=== PATIENT | female | born 2000 | race Caucasian/White ===

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

== ENCOUNTER 2021-02-22 22:45 | Emergency (ER) | payer MEDICAID ==
[~2021-02-22] VITALS: Ht 165.1 cm; Wt 84.8 kg
[2021-02-22] MEDS ORDERED: ketorolac tromethamine 15mg/ml inj. IM ONE (23:55)
[2021-02-22] MEDS ORDERED: oxyCODONE/APAP 5-325mg tablet PO ONE (23:55)
[2021-02-23 00:41] VITALS: BP 131/80
== END 2021-02-23 00:43 | disposition home or self-care (01) ==
LOC: ER 22:46
DX: G89.29 Other chronic pain (principal); M25.551 Pain in right hip; M25.552 Pain in left hip; R45.851 Suicidal ideations; Z88.1 Allergy status to other antibiotic agents; Z79.899 Other long term (current) drug therapy
CPT/HCPCS: 96372; 99283; J1885

== ENCOUNTER 2022-02-24 20:15 | Emergency (ER) | payer MEDICAID ==
[~2022-02-24] VITALS: Ht 165.1 cm; Wt 92.3 kg
[2022-02-24] MEDS ORDERED: oxyCODONE/APAP 10/325mg tablet PO ONE (23:35)
[2022-02-24 23:53] VITALS: BP 125/88
== END 2022-02-24 23:55 | disposition home or self-care (01) ==
LOC: ER 20:16
DX: G89.29 Other chronic pain (principal); M25.551 Pain in right hip; M25.552 Pain in left hip; Z88.1 Allergy status to other antibiotic agents; Z88.5 Allergy status to narcotic agent; Z88.8 Allergy status to other drugs, medicaments and biological substances
CPT/HCPCS: 99283

== ENCOUNTER 2023-01-01 23:19 | Emergency (ER) | payer MEDICAID ==
[~2023-01-01] VITALS: Ht 165.1 cm; Wt 96.8 kg
[~2023-01-01 23:19] MED LIST: ONDA4TAB12 PO
[2023-01-01 23:31] VITALS: BP 104/66
[2023-01-01] MEDS ORDERED: morphine 4 MG/ML inj SYRINge IM ONE (23:45)
[2023-01-01] MEDS ORDERED: OXYC-149 PO (23:45)
[2023-01-01] MEDS ORDERED: ondansetron 4mg rapidly disintigrating tab PO ONE (23:45)
== END 2023-01-02 00:03 | disposition home or self-care (01) ==
LOC: ER 23:20
DX: G89.29 Other chronic pain (principal); M25.551 Pain in right hip; M25.552 Pain in left hip; Z88.1 Allergy status to other antibiotic agents; Z88.6 Allergy status to analgesic agent; Z79.899 Other long term (current) drug therapy
CPT/HCPCS: 96372; 99283; J2270

== ENCOUNTER 2023-02-11 21:42 | Emergency (ER) | payer MEDICAID ==
[~2023-02-11] VITALS: Ht 165.1 cm; Wt 95.5 kg
[~2023-02-11 21:42] MED LIST changes: +OXYC-149 PO
[2023-02-11 22:05] VITALS: BP 106/61
[2023-02-11] MEDS ORDERED: OXYC-150 PO (23:39)
[2023-02-11] MEDS ORDERED: oxyCODONE/APAP 10/325mg tablet PO ONE (23:40)
== END 2023-02-11 23:52 | disposition home or self-care (01) ==
LOC: ER 21:42
DX: M25.552 Pain in left hip (principal); M25.551 Pain in right hip; G89.29 Other chronic pain; Z88.1 Allergy status to other antibiotic agents; F12.10 Cannabis abuse, uncomplicated; Z79.899 Other long term (current) drug therapy; Z79.1 Long term (current) use of non-steroidal anti-inflammatories (NSAID); Z79.2 Long term (current) use of antibiotics
CPT/HCPCS: 99283

== ENCOUNTER 2023-02-15 21:19 | Emergency (ER) | payer MEDICAID ==
[~2023-02-15] VITALS: Ht 165.1 cm; Wt 95.5 kg
[~2023-02-15 21:19] MED LIST changes: +OXYC-150 PO
[2023-02-15] MEDS ORDERED: LORazepam 1 MG tablet PO ONE (23:15)
[2023-02-15] MEDS ORDERED: oxyCODONE/APAP 5-325mg tablet PO ONE (23:15)
[2023-02-15] MEDS ORDERED: OXYC-145 PO (23:18)
[2023-02-15 23:27] VITALS: BP 98/56
== END 2023-02-15 23:42 | disposition home or self-care (01) ==
LOC: ER 21:20
DX: G89.29 Other chronic pain (principal); M25.551 Pain in right hip; M25.552 Pain in left hip; M19.90 Unspecified osteoarthritis, unspecified site; Z88.1 Allergy status to other antibiotic agents; Z88.8 Allergy status to other drugs, medicaments and biological substances; Z56.0 Unemployment, unspecified
CPT/HCPCS: 99284

== ENCOUNTER 2023-02-23 05:58 | Emergency (ER) | payer MEDICAID ==
[~2023-02-23] VITALS: Ht 165.1 cm; Wt 95.5 kg
[~2023-02-23 05:58] MED LIST changes: +OXYC-145 PO
[2023-02-23 06:06] VITALS: BP 124/68
[2023-02-23] MEDS ORDERED: OXYC-145 PO (08:24)
[2023-02-23] MEDS ORDERED: ondansetron 4mg rapidly disintigrating tab PO ONE (08:25)
[2023-02-23] MEDS ORDERED: morphine 4 MG/ML inj SYRINge IM ONE (08:25)
== END 2023-02-23 09:08 | disposition home or self-care (01) ==
LOC: ER 05:58
DX: G89.29 Other chronic pain (principal); M25.551 Pain in right hip; M25.552 Pain in left hip; M19.90 Unspecified osteoarthritis, unspecified site; Z88.1 Allergy status to other antibiotic agents; Z56.0 Unemployment, unspecified
CPT/HCPCS: 96372; 99284; J2270

== ENCOUNTER 2023-03-10 21:11 | Emergency (ER) | payer MEDICAID ==
[~2023-03-10] VITALS: Ht 165.1 cm; Wt 95.5 kg
[2023-03-10 21:24] VITALS: BP 102/62
[2023-03-11] MEDS ORDERED: OXYC-145 PO (09:02)
== END 2023-03-10 23:04 | disposition left against medical advice (07) ==
LOC: ER 21:12
DX: M25.551 Pain in right hip (principal); M25.552 Pain in left hip; Z53.21 Procedure and treatment not carried out due to patient leaving prior to being seen by health care provider
CPT/HCPCS: 99281

== ENCOUNTER 2023-03-11 07:17 | Emergency (ER) | payer MEDICAID ==
[~2023-03-11] VITALS: Ht 165.1 cm; Wt 95.5 kg
[2023-03-11 07:34] VITALS: BP 103/65
[2023-03-11] MEDS ORDERED: morphine 4 MG/ML inj SYRINge IM ONE (09:00)
[2023-03-11] MEDS ORDERED: ondansetron 4mg rapidly disintigrating tab PO ONE (09:00)
[2023-03-11] MEDS ORDERED: OXYC-145 PO (09:02)
== END 2023-03-11 09:18 | disposition home or self-care (01) ==
LOC: ER 07:17
DX: M25.552 Pain in left hip (principal); M25.551 Pain in right hip; M19.90 Unspecified osteoarthritis, unspecified site; Z88.1 Allergy status to other antibiotic agents; Z88.5 Allergy status to narcotic agent; Z56.0 Unemployment, unspecified
CPT/HCPCS: 96372; 99283; J2270

== ENCOUNTER 2023-03-19 09:46 | Emergency (ER) | payer MEDICAID ==
[~2023-03-19] VITALS: Ht 165.1 cm; Wt 95.0 kg
[2023-03-19 10:28] VITALS: BP 120/93
[2023-03-19] MEDS ORDERED: ondansetron 4mg rapidly disintigrating tab PO ONE (10:55)
[2023-03-19] MEDS ORDERED: morphine 4 MG/ML inj SYRINge IM ONE (10:55)
[2023-03-19] MEDS ORDERED: PRED10TA23 PO (11:23)
[2023-03-19] MEDS ORDERED: HYDR-3973 PO (11:23)
== END 2023-03-19 11:39 | disposition home or self-care (01) ==
LOC: ER 09:47
DX: G89.29 Other chronic pain (principal); M25.511 Pain in right shoulder; M25.512 Pain in left shoulder; Z56.0 Unemployment, unspecified; Z88.1 Allergy status to other antibiotic agents; Z88.5 Allergy status to narcotic agent; Z79.899 Other long term (current) drug therapy
CPT/HCPCS: 96372; 99283; J2270

== ENCOUNTER 2023-04-03 20:06 | Emergency (ER) | payer MEDICAID ==
[~2023-04-03] VITALS: Ht 165.1 cm; Wt 95.5 kg
[~2023-04-03 20:06] MED LIST changes: +HYDR-3973 PO; +PRED10TA23 PO
[2023-04-03 20:33] VITALS: BP 130/90
[2023-04-04] MEDS ORDERED: ketorolac trometh. 30mg/ml inj. IM ONE (00:40)
[2023-04-04] MEDS ORDERED: morphine 10mg/ml inj. IV ONE (00:40)
[2023-04-04] MEDS ORDERED: ondansetron/PF 4mg/2ml inj IV ONE (01:05)
[2023-04-04] MEDS ORDERED: OXYC-150 PO (01:25)
[2023-04-04] MEDS ORDERED: oxyCODONE/APAP 10/325mg tablet PO ONE (01:35)
== END 2023-04-04 01:49 | disposition home or self-care (01) ==
LOC: ER 20:06
DX: M47.899 Other spondylosis, site unspecified (principal); G89.29 Other chronic pain; M25.551 Pain in right hip; M25.552 Pain in left hip; M25.561 Pain in right knee; M25.562 Pain in left knee; Z88.1 Allergy status to other antibiotic agents; Z88.8 Allergy status to other drugs, medicaments and biological substances
CPT/HCPCS: 96372; 96374; 96375; 99284; J1885; J2274; J2405

== ENCOUNTER 2023-04-12 12:29 | Emergency (ER) | payer MEDICAID ==
[~2023-04-12] VITALS: Ht 167.6 cm; Wt 94.2 kg
[2023-04-12] MEDS ORDERED: ketorolac tromethamine 15mg/ml inj. IM ONE (14:00)
[2023-04-12] MEDS ORDERED: morphine 4 MG/ML inj SYRINge IV ONE (14:00)
[2023-04-12] MEDS ORDERED: ondansetron/PF 4mg/2ml inj IV ONE (14:00)
[2023-04-12] MEDS ORDERED: OXYC-150 PO ×3 (14:37→16:28)
[2023-04-12] MEDS ORDERED: oxyCODONE/APAP 5-325mg tablet PO ONE (15:25)
[2023-04-12 15:36] VITALS: BP 128/92
== END 2023-04-12 15:40 | disposition home or self-care (01) ==
LOC: ER 12:29
DX: G89.29 Other chronic pain (principal); M16.0 Bilateral primary osteoarthritis of hip; M25.551 Pain in right hip; M25.552 Pain in left hip; Z56.0 Unemployment, unspecified; Z88.1 Allergy status to other antibiotic agents; Z88.8 Allergy status to other drugs, medicaments and biological substances
CPT/HCPCS: 96372; 96374; 96375; 99284; J1885; J2270; J2405; 99283

== ENCOUNTER 2023-04-24 19:12 | Emergency (ER) | payer MEDICAID ==
[~2023-04-24] VITALS: Ht 165.1 cm; Wt 94.1 kg
[~2023-04-24 19:12] MED LIST changes: -HYDR-3973 PO; -PRED10TA23 PO
[2023-04-24 19:20] VITALS: BP 128/92
[2023-04-24] MEDS ORDERED: ketorolac trometh inj. 60 MG/2 ML VIAL IM ONE (20:20)
[2023-04-24] MEDS ORDERED: HYDROcodone/acetaminophen 10/325mg tab PO ONE (20:20)
[2023-04-24] MEDS ORDERED: HYDR-3973 PO (20:23)
== END 2023-04-24 20:59 | disposition home or self-care (01) ==
LOC: ER 19:12
DX: G89.29 Other chronic pain (principal); M25.551 Pain in right hip; M25.552 Pain in left hip; M54.9 Dorsalgia, unspecified; M45.A0 Non-radiographic axial spondyloarthritis of unspecified sites in spine; M19.90 Unspecified osteoarthritis, unspecified site; Z56.0 Unemployment, unspecified; Z88.1 Allergy status to other antibiotic agents; Z88.8 Allergy status to other drugs, medicaments and biological substances; Z91.048 Other nonmedicinal substance allergy status; Z79.899 Other long term (current) drug therapy
CPT/HCPCS: 96372; 99283; J1885

== ENCOUNTER 2023-04-27 21:59 | Emergency (ER) | payer MEDICAID ==
[~2023-04-27] VITALS: Ht 165.1 cm; Wt 85.0 kg
[~2023-04-27 21:59] MED LIST changes: +HYDR-3973 PO
[2023-04-27 22:27] VITALS: BP 135/91
[2023-04-27] MEDS ORDERED: oxyCODONE/APAP 10/325mg tablet PO ONE (22:30)
[2023-04-27] MEDS ORDERED: PRED10TA PO (22:34)
== END 2023-04-27 23:26 | disposition home or self-care (01) ==
LOC: ER 21:59
DX: M25.551 Pain in right hip (principal); M25.552 Pain in left hip; M45.0 Ankylosing spondylitis of multiple sites in spine; G89.29 Other chronic pain; Z56.0 Unemployment, unspecified; Z88.1 Allergy status to other antibiotic agents; F12.10 Cannabis abuse, uncomplicated; Z88.8 Allergy status to other drugs, medicaments and biological substances; Z79.899 Other long term (current) drug therapy
CPT/HCPCS: 99283

== ENCOUNTER 2023-05-01 08:06 | Emergency (ER) | payer MEDICAID ==
[~2023-05-01] VITALS: Ht 165.1 cm; Wt 93.2 kg
[~2023-05-01 08:06] MED LIST changes: +PRED10TA PO
[2023-05-01 08:21] VITALS: BP 113/70
[2023-05-01] MEDS ORDERED: ondansetron 4mg rapidly disintigrating tab PO ONE (09:30)
[2023-05-01] MEDS ORDERED: morphine 4 MG/ML inj SYRINge IM ONE (09:30)
[2023-05-01] MEDS ORDERED: HYDR-3973 PO (09:31)
[2023-05-01] MEDS ORDERED: OXYC-145 PO ×2 (09:35→09:37)
== END 2023-05-01 10:22 | disposition home or self-care (01) ==
LOC: ER 08:07
DX: M08.3 Juvenile rheumatoid polyarthritis (seronegative) (principal); M25.551 Pain in right hip; M25.552 Pain in left hip; F12.90 Cannabis use, unspecified, uncomplicated; M19.90 Unspecified osteoarthritis, unspecified site; Z88.1 Allergy status to other antibiotic agents; Z88.8 Allergy status to other drugs, medicaments and biological substances; Z56.0 Unemployment, unspecified
CPT/HCPCS: 96372; 99283; J2270

== ENCOUNTER 2023-05-11 11:39 | Emergency (ER) | payer MEDICAID ==
[~2023-05-11] VITALS: Ht 165.1 cm; Wt 93.2 kg
[2023-05-11 11:48] VITALS: BP 129/76; PULSE 110; TEMP 97.6; O2SAT 98
[2023-05-11] MEDS ORDERED: oxyCODONE/APAP 5-325mg tablet PO ONE (14:45)
[2023-05-11] MEDS ORDERED: OXYC-145 PO (14:48)
[2023-05-11 14:58] VITALS: RESP 18
== END 2023-05-11 15:01 | disposition home or self-care (01) ==
LOC: ER 11:40
DX: G89.29 Other chronic pain (principal); M25.551 Pain in right hip; M25.552 Pain in left hip; M19.90 Unspecified osteoarthritis, unspecified site; F12.90 Cannabis use, unspecified, uncomplicated; Z56.0 Unemployment, unspecified; Z88.1 Allergy status to other antibiotic agents; Z88.8 Allergy status to other drugs, medicaments and biological substances; Z79.899 Other long term (current) drug therapy
CPT/HCPCS: 99283

== ENCOUNTER 2023-05-17 14:25 | Emergency (ER) | payer MEDICAID ==
[~2023-05-17] VITALS: Ht 160 cm; Wt 93.2 kg
[2023-05-17 15:11] VITALS: BP 149/91; PULSE 98; TEMP 97.9; O2SAT 100
[2023-05-17] MEDS ORDERED: ketorolac tromethamine 15mg/ml inj. IM ONE (17:05)
[2023-05-17 17:39] VITALS: RESP 19
== END 2023-05-17 17:47 | disposition home or self-care (01) ==
LOC: ER 14:25
DX: S93.492A Sprain of other ligament of left ankle, initial encounter (principal); W10.8XXA Fall (on) (from) other stairs and steps, initial encounter; Y93.89 Activity, other specified; Y92.89 Other specified places as the place of occurrence of the external cause; Y99.8 Other external cause status
CPT/HCPCS: 29515; 73610; 96372; 99283; J1885

== ENCOUNTER 2023-05-22 15:54 | Emergency (ER) | payer MEDICAID ==
[~2023-05-22] VITALS: Ht 165.1 cm; Wt 96.4 kg
[2023-05-22 16:09] VITALS: BP 112/76; PULSE 99; RESP 16; O2SAT 100
[2023-05-22] MEDS ORDERED: methylPREDNISolone sod succ 125mg/2ml vial IM ONE (18:40)
[2023-05-22] MEDS ORDERED: LORazepam 2 mg/ml vial IM ONE (18:40)
[2023-05-22] MEDS ORDERED: PRED10TA23 PO (18:52)
== END 2023-05-22 19:53 | disposition home or self-care (01) ==
LOC: ER 15:54
DX: M25.551 Pain in right hip (principal); G89.29 Other chronic pain; M45.9 Ankylosing spondylitis of unspecified sites in spine; M06.00 Rheumatoid arthritis without rheumatoid factor, unspecified site; Z88.1 Allergy status to other antibiotic agents; Z56.0 Unemployment, unspecified; Z79.899 Other long term (current) drug therapy
CPT/HCPCS: 96372; 99284; J2060; J2930

== ENCOUNTER 2024-03-22 16:21 | Emergency (ER) | payer MEDICAID ==
[~2024-03-22] VITALS: Ht 165.1 cm; Wt 77.3 kg
[~2024-03-22 16:21] MED LIST changes: -HYDR-3973 PO
[2024-03-22 16:41] VITALS: BP 124/88; PULSE 72; RESP 18; TEMP 97.8; O2SAT 100
[2024-03-22 17:00] LABS: BASOPHILS % (AUTO) 0.4 % (0-1); EOSINOPHILS % (AUTO) 0.1 % (0-6); HEMATOCRIT 40.5 % (35.0-45.0); HEMOGLOBIN 13.5 g/dl (12.0-16.0); LYMPHOCYTES # (AUTO) 2.2 X10'3 (1.1-4.8); MEAN CORPUSCULAR HEMOGLOBIN 30.8 PG (27.0-31.0); MEAN CORPUSCULAR HGB CONC 33.4 g/dL (33.0-36.5); MEAN CORPUSCULAR VOLUME 92.3 FL (78-98); MEAN PLATELET VOLUME 8.5 FL (7.4-10.4); MONOCYTES # (AUTO) 0.6 X10'3 (0-0.9); MONOCYTES % (AUTO) 5.1 % (2-12); NEUTROPHILS # (AUTO) 8.1 X10'3 (1.8-7.7); NEUTROPHILS % (AUTO) 74.4 % (42-75); PLATELET COUNT 471 X10'3 (140-440); RED BLOOD COUNT 4.39 X10'6 (4.20-5.60); RED CELL DISTRIBUTION WIDTH 14.3 % (11.5-14.5); WHITE BLOOD COUNT 10.9 X10'3 (4.5-11.0)
[2024-03-22 17:21] LABS: ALANINE AMINOTRANSFERASE 29 U/L (12-78); ALBUMIN/GLOBULIN RATIO 0.9 (1.1-1.5); ALKALINE PHOSPHATASE 64 IU/L (46-116); ANION GAP 16 (8-16); ASPARTATE AMINO TRANSFERASE 10 U/L (10-37); BILIRUBIN,TOTAL 0.4 MG/DL (0.1-1.0); BLOOD UREA NITROGEN 9 MG/DL (7-18); BUN/CREATININE RATIO 9.3 (10.0-20.0); CALCIUM 10.1 MG/DL (8.5-10.1); CHLORIDE 100 MMOL/L (99-107); CREATININE 0.97 MG/DL (0.40-0.90); GLUCOSE 143 MG/DL (70-104); PRO BRAIN NATRIURETIC PEPTIDE 101 PG/ML (0-125); SODIUM 134 MMOL/L (135-145); TOTAL CARBON DIOXIDE 18.1 MMOL/L (24-32); TOTAL PROTEIN 8.3 G/DL (6.4-8.2); eCRCL 80 ML/MIN; eGFR 71 ML/MIN
[2024-03-22 17:31] LABS: POTASSIUM 2.9 MMOL/L (3.5-5.1)
[2024-03-22 20:59] LABS: FREE T4 (FREE THYROXINE) 0.89 NG/DL (0.73-1.40); THYROID STIMULATING HORMONE 1.55 ulU/ml (0.34-4.50)
== END 2024-03-22 20:50 | disposition left against medical advice (07) ==
LOC: ER 16:22
DX: R06.02 Shortness of breath (principal); J45.909 Unspecified asthma, uncomplicated; Z53.21 Procedure and treatment not carried out due to patient leaving prior to being seen by health care provider
CPT/HCPCS: 36415; 80053; 83880; 84439; 84443; 84484; 85025; 93005

== ENCOUNTER 2024-05-20 06:32 | Emergency (ER) | payer MEDICAID ==
[~2024-05-20] VITALS: Ht 162.6 cm; Wt 86.4 kg
[~2024-05-20 06:32] MED LIST changes: +ONDA-243 PO; -ONDA4TAB12 PO
[2024-05-20] MEDS: LORazepam 2 mg/ml vial IV ONE ×2 (07:39→10:50)
[2024-05-20] MEDS: ondansetron/PF 4mg/2ml inj IV ONE (07:39)
[2024-05-20] MEDS: morphine 4 MG/ML inj SYRINge IV ONE ×2 (07:40→08:37)
[2024-05-20] MEDS: normal saline 1000ml 1,000 ML IV ONE (07:40)
[2024-05-20 07:51] LABS: ANION GAP 13 (8-16); BLOOD UREA NITROGEN 10 MG/DL (7-18); BUN/CREATININE RATIO 11.8 (10.0-20.0); CALCIUM 9.7 MG/DL (8.5-10.1); CHLORIDE 100 MMOL/L (99-107); CREATININE 0.85 MG/DL (0.40-0.90); GLUCOSE 101 MG/DL (70-104); SODIUM 134 MMOL/L (135-145); TOTAL CARBON DIOXIDE 21.5 MMOL/L (24-32); eCRCL 88 ML/MIN; eGFR 82 ML/MIN
[2024-05-20 07:52] LABS: BASOPHILS % (AUTO) 0.3 % (0-1); EOSINOPHILS % (AUTO) 0.2 % (0-6); HEMATOCRIT 44.7 % (35.0-45.0); HEMOGLOBIN 14.7 g/dl (12.0-16.0); LYMPHOCYTES # (AUTO) 2.6 X10'3 (1.1-4.8); LYMPHOCYTES % (AUTO) 16.8 % (21-51); MEAN CORPUSCULAR HEMOGLOBIN 31.1 PG (27.0-31.0); MEAN CORPUSCULAR HGB CONC 32.9 g/dL (33.0-36.5); MEAN CORPUSCULAR VOLUME 94.6 FL (78-98); MEAN PLATELET VOLUME 8.5 FL (7.4-10.4); MONOCYTES # (AUTO) 0.7 X10'3 (0-0.9); MONOCYTES % (AUTO) 4.4 % (2-12); NEUTROPHILS # (AUTO) 12.4 X10'3 (1.8-7.7); NEUTROPHILS % (AUTO) 78.3 % (42-75); PLATELET COUNT 561 X10'3 (140-440); POTASSIUM 4.4 MMOL/L (3.5-5.1); RED BLOOD COUNT 4.72 X10'6 (4.20-5.60); RED CELL DISTRIBUTION WIDTH 14.4 % (11.5-14.5); WHITE BLOOD COUNT 15.8 X10'3 (4.5-11.0)
[2024-05-20 07:58] LABS: HCG SERUM QL NEGATIVE
[2024-05-20] MEDS ORDERED: iohexol 350MG/ML 100ml bottle IV ONE (08:21)
[2024-05-20] MEDS: proCHLORperazine 10 MG/2 ml inj IV ONE (09:19)
[2024-05-20] MEDS: ketorolac trometh. 30mg/ml inj. IV ONE (09:20)
[2024-05-20] MEDS: dexamethasone 4mg/ml inj IV ONE (10:50)
[2024-05-20 11:53] LABS: CLARITY,URINE CLEAR (Clear); PH,URINE 6.5 (4.8-8.0)
[2024-05-20 11:54] LABS: UA COLLECTION TYPE CLN CATCH MIDSTREAM; URINE HCG NEGATIVE (NEG)
[2024-05-20 11:55] LABS: COLOR,URINE DARK YELLOW (Yellow)
[2024-05-20 12:05] LABS: SQUAMOUS EPITHELIAL CELL,UR MANY /LPF (FEW)
[2024-05-20 12:07] LABS: BACTERIA,URINE FEW /HPF (Neg); RBC,URINE 0-2 /HPF (0-2); WBC,URINE 0-4 /HPF (0-4)
[2024-05-20] MEDS ORDERED: PROC-8 PO (12:22)
[2024-05-20] MEDS ORDERED: OXYC-658 PO (12:22)
[2024-05-20 13:22] VITALS: BP 164/107; PULSE 57; RESP 18; TEMP 98.4; O2SAT 100
[2024-05-20] MEDS ORDERED: dexamethasone 4mg/ml inj IV SCH (14:00)
== END 2024-05-20 13:26 | disposition home or self-care (01) ==
LOC: ER 06:32
DX: G44.89 Other headache syndrome (principal); M19.90 Unspecified osteoarthritis, unspecified site; G89.29 Other chronic pain; M54.9 Dorsalgia, unspecified; Z88.1 Allergy status to other antibiotic agents; Z88.8 Allergy status to other drugs, medicaments and biological substances; Z79.899 Other long term (current) drug therapy
CPT/HCPCS: 36415; 70496; 80048; 81001; 81025; 84703; 85025; 96361; 96374; 96375; 96376; 99285; J0780; J1100; J1885; J2060; J2270; J2405; J7030; Q9967

== ENCOUNTER 2024-06-06 10:00 | Emergency (ER) | payer MEDICAID ==
[~2024-06-06] VITALS: Ht 165.1 cm; Wt 86.0 kg
[~2024-06-06 10:00] MED LIST changes: +PROC-8 PO
[2024-06-06] MEDS: LORazepam 2 mg/ml vial IV ONE (11:23)
[2024-06-06] MEDS: ketorolac trometh 15mg/ml vial 15 MG/ML ML IV ONE (11:23)
[2024-06-06] MEDS: normal saline 1000ml 1,000 ML IV ONE (11:24)
[2024-06-06] MEDS: SUMAtriptan succ. 6 MG/0.5ml vial SQ ONE (11:24)
[2024-06-06] MEDS: metoclopramide 5 mg/ml inj IV ONE (11:24)
[2024-06-06] MEDS: acetaminophen 1,000mg/100ml IV 100 ML IV SCH (12:18)
[2024-06-06 13:00] VITALS: BP 160/99; PULSE 134; RESP 21; O2SAT 96
[2024-06-06] MEDS ORDERED: acetaminophen 1,000mg/100ml IV 100 ML IV SCH (14:00)
== END 2024-06-06 13:12 | disposition home or self-care (01) ==
LOC: ER 10:00
DX: G43.909 Migraine, unspecified, not intractable, without status migrainosus (principal); M19.90 Unspecified osteoarthritis, unspecified site; Z88.1 Allergy status to other antibiotic agents; Z88.8 Allergy status to other drugs, medicaments and biological substances; Z79.899 Other long term (current) drug therapy
CPT/HCPCS: 93005; 96361; 96372; 96374; 96375; 99285; J0131; J1885; J2060; J2765; J3030; J7030

== ENCOUNTER 2024-06-07 22:39 | Emergency (ER) | payer MEDICAID ==
[~2024-06-07] VITALS: Ht 165.1 cm; Wt 87.3 kg
[2024-06-07 23:19] LABS: BASOPHILS # (AUTO) 0.1 X10'3 (0-0.2); BASOPHILS % (AUTO) 0.6 % (0-1); EOSINOPHILS % (AUTO) 0.2 % (0-6); HEMATOCRIT 40.4 % (35.0-45.0); HEMOGLOBIN 13.3 g/dl (12.0-16.0); LYMPHOCYTES # (AUTO) 4.1 X10'3 (1.1-4.8); LYMPHOCYTES % (AUTO) 35.7 % (21-51); MEAN CORPUSCULAR HGB CONC 32.9 g/dL (33.0-36.5); MEAN CORPUSCULAR VOLUME 94.4 FL (78-98); MEAN PLATELET VOLUME 7.4 FL (7.4-10.4); MONOCYTES % (AUTO) 8.6 % (2-12); NEUTROPHILS # (AUTO) 6.3 X10'3 (1.8-7.7); NEUTROPHILS % (AUTO) 54.9 % (42-75); PLATELET COUNT 470 X10'3 (140-440); RED BLOOD COUNT 4.28 X10'6 (4.20-5.60); RED CELL DISTRIBUTION WIDTH 14.7 % (11.5-14.5); WHITE BLOOD COUNT 11.4 X10'3 (4.5-11.0)
[2024-06-07 23:36] LABS: ALBUMIN 4.3 G/DL (3.4-5.0); ANION GAP 14 (8-16); BLOOD UREA NITROGEN 4 MG/DL (7-18); BUN/CREATININE RATIO 5.9 (10.0-20.0); CALCIUM 9.3 MG/DL (8.5-10.1); CHLORIDE 105 MMOL/L (99-107); CREATININE 0.68 MG/DL (0.40-0.90); GLUCOSE 102 MG/DL (70-104); PRO BRAIN NATRIURETIC PEPTIDE 1005 PG/ML (0-125); SODIUM 142 MMOL/L (135-145); TOTAL CARBON DIOXIDE 22.7 MMOL/L (24-32); eCRCL 115 ML/MIN; eGFR > 90 ML/MIN
[2024-06-07 23:46] LABS: POTASSIUM 2.8 MMOL/L (3.5-5.1)
[2024-06-08] MEDS: normal saline 1000ml 1,000 ML IV ONE (03:46)
[2024-06-08] MEDS: proCHLORperazine 10 MG/2 ml inj IV ONE (04:42)
[2024-06-08] MEDS: acetaminophen 1,000mg/100ml IV 100 ML IV ONE (04:44)
[2024-06-08] MEDS: dexamethasone inj 6 MG in dextrose 5%-water 100 ML IV ONE (04:44)
[2024-06-08 06:30] VITALS: BP 146/83; PULSE 88; RESP 14; TEMP 98.2; O2SAT 99
== END 2024-06-08 06:32 | disposition home or self-care (01) ==
LOC: ER 22:39
DX: R51.9 Headache, unspecified (principal); M19.90 Unspecified osteoarthritis, unspecified site; Z88.1 Allergy status to other antibiotic agents; Z79.899 Other long term (current) drug therapy
CPT/HCPCS: 36415; 71045; 80048; 83880; 84484; 85025; 93005; 96361; 96374; 96375; 99285; J0131; J0780; J1100; J7030; J7060

== ENCOUNTER 2024-06-22 14:57 | Inpatient (IN) | payer MEDICAID ==
[~2024-06-22] VITALS: Ht 165.1 cm; Wt 74.0 kg
[2024-06-22 16:18] LABS: BASOPHILS # (AUTO) 0.1 X10'3 (0-0.2); BASOPHILS % (AUTO) 0.5 % (0-1); EOSINOPHILS % (AUTO) 0.3 % (0-6); HEMATOCRIT 42.1 % (35.0-45.0); HEMOGLOBIN 13.6 g/dl (12.0-16.0); LYMPHOCYTES # (AUTO) 2.2 X10'3 (1.1-4.8); LYMPHOCYTES % (AUTO) 17.2 % (21-51); MEAN CORPUSCULAR HEMOGLOBIN 31.2 PG (27.0-31.0); MEAN CORPUSCULAR HGB CONC 32.3 g/dL (33.0-36.5); MEAN CORPUSCULAR VOLUME 96.5 FL (78-98); MEAN PLATELET VOLUME 7.3 FL (7.4-10.4); MONOCYTES # (AUTO) 0.9 X10'3 (0-0.9); MONOCYTES % (AUTO) 6.7 % (2-12); NEUTROPHILS # (AUTO) 9.7 X10'3 (1.8-7.7); NEUTROPHILS % (AUTO) 75.3 % (42-75); PLATELET COUNT 595 X10'3 (140-440); RED BLOOD COUNT 4.36 X10'6 (4.20-5.60); RED CELL DISTRIBUTION WIDTH 15.1 % (11.5-14.5); WHITE BLOOD COUNT 12.9 X10'3 (4.5-11.0)
[2024-06-22] MEDS ORDERED: naloxone 0.4 mg/ml inj IV PRN (16:20)
[2024-06-22 16:41] LABS: BILIRUBIN,URINE NEGATIVE (Neg); CLARITY,URINE CLOUDY (Clear); COLOR,URINE YELLOW (Yellow); GLUCOSE, URINE NEGATIVE (Neg); KETONES,URINE TRACE mg/dl (Neg); LEUKOCYTE ESTERASE ,URINE NEGATIVE (Neg); NITRITES, URINE NEGATIVE (Neg); OCCULT BLOOD,URINE SMALL (Neg); PROTEIN,URINE NEGATIVE (Neg); UROBILINOGEN,URINE 0.2 E.U/dL (0.2-1.0)
[2024-06-22 16:46] LABS: ALANINE AMINOTRANSFERASE 23 U/L (12-78); ALBUMIN 3.8 G/DL (3.4-5.0); ALBUMIN/GLOBULIN RATIO 0.9 (1.1-1.5); ALKALINE PHOSPHATASE 58 IU/L (46-116); ANION GAP 10 (8-16); ASPARTATE AMINO TRANSFERASE 11 U/L (10-37); BILIRUBIN,TOTAL 0.2 MG/DL (0.1-1.0); BLOOD UREA NITROGEN 7 MG/DL (7-18); BUN/CREATININE RATIO 11.9 (10.0-20.0); CALCIUM 9.8 MG/DL (8.5-10.1); CHLORIDE 105 MMOL/L (99-107); CREATININE 0.59 MG/DL (0.40-0.90); GLUCOSE 112 MG/DL (70-104); POTASSIUM 3.8 MMOL/L (3.5-5.1); SODIUM 139 MMOL/L (135-145); TOTAL CARBON DIOXIDE 24.2 MMOL/L (24-32); eCRCL 132 ML/MIN; eGFR > 90 ML/MIN
[2024-06-22 17:03] LABS: MUCUS STRANDS MANY /LPF (Neg); SQUAMOUS EPITHELIAL CELL,UR MANY /LPF (FEW); UA COLLECTION TYPE STRAIGHT CATH
[2024-06-22 17:04] LABS: WBC,URINE 20-30 /HPF (0-4)
[2024-06-22 17:05] LABS: AMORPHOUS URATES 1+; BACTERIA,URINE FEW /HPF (Neg); RBC,URINE 20-50 /HPF (0-2); TRANSITIONAL EPI CELLS,URINE FEW /HPF
[2024-06-22 17:06] LABS: WBC CLUMPS,URINE FEW /HPF (NEGATIVE)
[2024-06-22 17:11] LABS: BILIRUBIN,DIRECT < 0.1 MG/DL (0-0.3)
[2024-06-22 17:11] LABS: URINE AMPHETAMINE SCREEN NEGATIVE (Neg); URINE BARBITUATE SCREEN NEGATIVE (Neg); URINE BENZODIAZEPINES SCREEN NEGATIVE (Neg); URINE CANNABINOID SCREEN NEGATIVE (Neg); URINE COCAINE SCREEN NEGATIVE (Neg); URINE METHADONE SCREEN NEGATIVE (Neg); URINE OPIATE SCREEN NEGATIVE (Neg); URINE PHENCYCLIDINE SCREEN NEGATIVE (Neg)
[2024-06-22 18:14] LABS: SALICYLATE 1.9 MG/DL (4.0-20.0)
[2024-06-22 18:15] LABS: ACETAMINOPHEN < 2.0 UG/ML (10-30)
[2024-06-22] MEDS: normal saline 1000ml 1,000 ML IV ONE (18:38)
[2024-06-22] MEDS: levoFLOXACIN-Levaquin 750MG/D5 150 ML IV STA (18:38)
[2024-06-22] MEDS ORDERED: iohexol 350MG/ML 100ml bottle IV ONE (21:58)
[2024-06-22 22:43] LABS: C-REACTIVE PROTEIN 1.25 MG/DL (0.0-0.5)
[2024-06-22 22:45] LABS: ETHANOL < 10 MG/DL (<10)
[2024-06-22 23:26] LABS: PRO BRAIN NATRIURETIC PEPTIDE 125 PG/ML (0-125)
[2024-06-23 01:01] LABS: GLUCOSE,CSF 71 MG/DL (40-75); TOTAL PROTEIN,CSF 75 MG/DL (15-45)
[2024-06-23 01:19] LABS: APPEARANCE,CSF CLEAR; CSF SUPERNATANT COLOR COLORLESS; CSF VOLUME 8.5 ML; TUBE# COUNTED 3
[2024-06-23 01:22] LABS: CSF WBC CT 1 /CU MM (0-5)
[2024-06-23 01:23] LABS: CSF RBC 2 /CU MM (0)
[2024-06-23] MEDS ORDERED: magnesium Cl slow-release 64mg tablet PO PRN (01:45)
[2024-06-23] MEDS ORDERED: magnesium sulf-water 2g/50mL 50 ML IV PRN (01:45)
[2024-06-23] MEDS ORDERED: potassium Cl 20 mEq SR tablet PO PRN ×2 (01:45)
[2024-06-23] MEDS ORDERED: mag hydrox/Alum hydrox/simeth 30ml oral suspension PO PRN (01:45)
[2024-06-23] MEDS ORDERED: magnesium sulf-water 4G/100mL 100 ML IV PRN (01:45)
[2024-06-23] MEDS ORDERED: acetaminophen 325mg tablet PO PRN (01:45)
[2024-06-23] MEDS ORDERED: potassium Cl 40MEQ/1/2NS 520ml 520 ML IV PRN (01:45)
[2024-06-23] MEDS ORDERED: magnesium hydroxide 30ml (MOM) UD suspension PO PRN (01:45)
[2024-06-23] MEDS: methylPREDNISolone sod succ 125mg/2ml vial IV ONE (02:31)
[2024-06-23] MEDS: normal saline 1000ml 1,000 ML IV SCH (02:31)
[2024-06-23] MEDS: HYDROmorphone inj. 0.5 MG/0.5 ML DISP.SYRIN IV PRN (05:41)
[2024-06-23] MEDS ORDERED: CELE50CA PO (06:41)
[2024-06-23] MEDS ORDERED: ADAL40SY SUBCUT (06:44)
[2024-06-23] MEDS ORDERED: [UNRECOGNIZED DRUG - CODE] (07:12)
[2024-06-23] MEDS: K and/or MAG REPLACEMENT MC SCH (08:00)
[2024-06-23] MEDS ORDERED: CefTRIAXone/D5W-Rocephin 1gm 50 ML IV SCH (08:00)
[2024-06-23] MEDS: levoFLOXACIN-Levaquin 750MG/D5 150 ML IV SCH (08:04)
[2024-06-23] MEDS: heparin, porcine 5000 units/ml vial SQ SCH (08:05)
[2024-06-23] MEDS ORDERED: iohexol 300mg/ml 100ml inj. ONE (08:37)
[2024-06-23 09:45] LABS: URINE HCG NEGATIVE (NEG)
[2024-06-23] MEDS ORDERED: PER5325T PO (13:12)
[2024-06-23] MEDS ORDERED: LEVO1TAB19 PO (13:12)
[2024-06-23] MEDS ORDERED: CHOL100017 PO (13:12)
[2024-06-23] MEDS ORDERED: FERR-106 PO (13:12)
[2024-06-23] MEDS ORDERED: BACL10TA2 PO (13:13)
[2024-06-23] MEDS ORDERED: CELE-127 PO (13:16)
[2024-06-23] MEDS: metoprolol tartrate 1mg/ml inj IV ONE (13:41)
[2024-06-23 14:35] VITALS: BP 142/85; PULSE 112; RESP 15; TEMP 98.6; O2SAT 97
[2024-06-23] MEDS: ADALIMUMAB SQ SCH (17:20)
[2024-06-23] MEDS ORDERED: SUMA25TA35 PO (17:45)
[2024-06-23 18:00] VITALS: BP 124/88; PULSE 110; RESP 16; TEMP 97.1; O2SAT 97
[2024-06-23] MEDS ORDERED: SUMATRIPTAN 25 MG PO PRN (18:05)
[2024-06-23] MEDS: ringers solution, lacted 1,000 ML IV ONE (18:10)
[2024-06-23 20:00] VITALS: RESP 14; O2SAT 98
[2024-06-23] MEDS: baclofen 10mg tablet PO PRN (21:35)
[2024-06-23] MEDS: oxyCODONE/APAP 5-325mg tablet PO PRN (21:36)
[2024-06-23 22:00] VITALS: BP 134/85; PULSE 124; RESP 18; TEMP 97.2; O2SAT 98
[2024-06-23] MEDS: HYDROmorphone 1 mg/ml syringe IV PRN (23:00)
[2024-06-24 06:00] VITALS: BP 128/80; PULSE 120; RESP 17; TEMP 97.2; O2SAT 98
[2024-06-24 06:34] LABS: BASOPHILS # (AUTO) 0.1 X10'3 (0-0.2); BASOPHILS % (AUTO) 0.5 % (0-1); EOSINOPHILS % (AUTO) 0.1 % (0-6); HEMATOCRIT 32.2 % (35.0-45.0); HEMOGLOBIN 10.3 g/dl (12.0-16.0); LYMPHOCYTES # (AUTO) 3.5 X10'3 (1.1-4.8); LYMPHOCYTES % (AUTO) 28.7 % (21-51); MEAN CORPUSCULAR HEMOGLOBIN 30.7 PG (27.0-31.0); MEAN CORPUSCULAR VOLUME 95.9 FL (78-98); MEAN PLATELET VOLUME 7.6 FL (7.4-10.4); MONOCYTES # (AUTO) 1.2 X10'3 (0-0.9); MONOCYTES % (AUTO) 9.6 % (2-12); NEUTROPHILS # (AUTO) 7.5 X10'3 (1.8-7.7); NEUTROPHILS % (AUTO) 61.1 % (42-75); PLATELET COUNT 501 X10'3 (140-440); RED BLOOD COUNT 3.35 X10'6 (4.20-5.60); WHITE BLOOD COUNT 12.3 X10'3 (4.5-11.0)
[2024-06-24 06:44] LABS: ALANINE AMINOTRANSFERASE 27 U/L (12-78); ALBUMIN 2.8 G/DL (3.4-5.0); ALBUMIN/GLOBULIN RATIO 0.8 (1.1-1.5); ALKALINE PHOSPHATASE 39 IU/L (46-116); ANION GAP 9 (8-16); ASPARTATE AMINO TRANSFERASE 17 U/L (10-37); BILIRUBIN,TOTAL 0.1 MG/DL (0.1-1.0); BLOOD UREA NITROGEN 11 MG/DL (7-18); BUN/CREATININE RATIO 19.6 (10.0-20.0); CALCIUM 8.8 MG/DL (8.5-10.1); CHLORIDE 107 MMOL/L (99-107); CREATININE 0.56 MG/DL (0.40-0.90); GLUCOSE 99 MG/DL (70-104); MAGNESIUM 1.8 MG/DL (1.5-2.4); PHOSPHORUS 4.1 MG/DL (2.3-4.5); POTASSIUM 3.6 MMOL/L (3.5-5.1); SODIUM 142 MMOL/L (135-145); TOTAL CARBON DIOXIDE 26.3 MMOL/L (24-32); TOTAL PROTEIN 6.1 G/DL (6.4-8.2); eCRCL 139 ML/MIN; eGFR > 90 ML/MIN
[2024-06-24] MEDS ORDERED: LEVONORGESTREL ETHIN ESTRADIOL PO SCH (08:00)
[2024-06-24] MEDS: ADALIMUMAB 40 MG/0.4 ML SQ SCH (08:00)
[2024-06-24] MEDS: ferrous sulfate 325mg tablet PO SCH (08:51)
[2024-06-24] MEDS: cholecalciferol (vitamin D3) 1,000 unit (25mcg) tablet PO SCH (08:51)
[2024-06-24 08:52] VITALS: RESP 17; O2SAT 98
[2024-06-24] MEDS: proCHLORperazine 5mg tablet PO PRN (08:54)
[2024-06-24 10:00] VITALS: BP 134/83; PULSE 123; RESP 18; TEMP 98.2; O2SAT 97
[2024-06-24] MEDS: SUMATRIPTAN 25 MG PO PRN (13:14)
[2024-06-24 13:33] LABS: IMMUNOGLOBULIN G, QN, SERUM 676 mg/dL (586-1602)
[2024-06-24] MEDS: ondansetron/PF 4mg/2ml inj IV PRN (14:06)
[2024-06-24 18:00] VITALS: BP 121/82; PULSE 121; RESP 14; TEMP 98.1; O2SAT 98
[2024-06-24 20:00] VITALS: RESP 14; O2SAT 98
[2024-06-24 22:00] VITALS: BP 140/93; PULSE 117; RESP 16; TEMP 98.4; O2SAT 97
[2024-06-24] MEDS: ADALIMUMAB 40 MG/0.8 ML SQ SCH (23:18)
[2024-06-24] MEDS: divalproex 250mg tablet, delayed-release PO SCH (23:58)
[2024-06-25 06:00] VITALS: BP 126/91; PULSE 106; RESP 17; TEMP 98.5; O2SAT 97
[2024-06-25 07:00] LABS: ALANINE AMINOTRANSFERASE 24 U/L (12-78); ALBUMIN/GLOBULIN RATIO 0.9 (1.1-1.5); ALKALINE PHOSPHATASE 44 IU/L (46-116); ANION GAP 8 (8-16); ASPARTATE AMINO TRANSFERASE 15 U/L (10-37); BASOPHILS # (AUTO) 0.1 X10'3 (0-0.2); BASOPHILS % (AUTO) 0.5 % (0-1); BILIRUBIN,TOTAL 0.1 MG/DL (0.1-1.0); BLOOD UREA NITROGEN 8 MG/DL (7-18); CALCIUM 8.9 MG/DL (8.5-10.1); CHLORIDE 104 MMOL/L (99-107); CREATININE 0.57 MG/DL (0.40-0.90); EOSINOPHILS % (AUTO) 0.3 % (0-6); GLUCOSE 92 MG/DL (70-104); LYMPHOCYTES # (AUTO) 4.6 X10'3 (1.1-4.8); LYMPHOCYTES % (AUTO) 42.7 % (21-51); MAGNESIUM 1.9 MG/DL (1.5-2.4); MEAN CORPUSCULAR HEMOGLOBIN 31.7 PG (27.0-31.0); MEAN CORPUSCULAR HGB CONC 33.2 g/dL (33.0-36.5); MEAN CORPUSCULAR VOLUME 95.4 FL (78-98); MONOCYTES # (AUTO) 0.9 X10'3 (0-0.9); MONOCYTES % (AUTO) 7.9 % (2-12); NEUTROPHILS # (AUTO) 5.3 X10'3 (1.8-7.7); NEUTROPHILS % (AUTO) 48.6 % (42-75); PHOSPHORUS 5.1 MG/DL (2.3-4.5); PLATELET COUNT 381 X10'3 (140-440); POTASSIUM 3.7 MMOL/L (3.5-5.1); RED BLOOD COUNT 3.46 X10'6 (4.20-5.60); RED CELL DISTRIBUTION WIDTH 14.8 % (11.5-14.5); SODIUM 140 MMOL/L (135-145); TOTAL CARBON DIOXIDE 27.8 MMOL/L (24-32); TOTAL PROTEIN 6.2 G/DL (6.4-8.2); WHITE BLOOD COUNT 10.9 X10'3 (4.5-11.0); eCRCL 137 ML/MIN; eGFR > 90 ML/MIN
[2024-06-25] MEDS: propranolol 10mg tablet PO SCH (08:38)
[2024-06-25] MEDS: SUMAtriptan 25 MG tablet PO PRN (08:38)
[2024-06-25 08:59] VITALS: RESP 17; O2SAT 97
[2024-06-25 10:00] VITALS: BP 133/101; PULSE 98; RESP 18; TEMP 97.5; O2SAT 97
[2024-06-25] MEDS: oxyCODONE/APAP 5-325mg tablet PO PRN (11:48)
[2024-06-25] MEDS ORDERED: DIVA250T4 PO (16:23)
[2024-06-25] MEDS ORDERED: SUMA25TA9 PO (16:23)
[2024-06-26] MEDS ORDERED: GADOTERATE MEGLUMINE 7.5 MMOL/15 ML VIAL IV ONE (08:53)
[2024-06-26 15:09] LABS: ANGIOTENSIN CONVERT ENZ, CSF <1.5 U/L (0.0-2.5)
[2024-06-27 11:13] LABS: AGNA-1 Negative (Negative); Anti-Ri Ab Negative (Negative); CASPR2 Antibody, Cell-based Negative (Negative); Cryptococcus neoformans/gattii Not Detected (Not Detected); Enterovirus Not Detected (Not Detected); Escherichia coli K1 Not Detected (Not Detected); Haemophilus influenzae Not Detected (Not Detected); Herpes simplex virus 1 Not Detected (Not Detected); Herpes simplex virus 2 Not Detected (Not Detected); Human herpesvirus 6 Not Detected (Not Detected); Human parechovirus Not Detected (Not Detected); IMMUNOGLOBULIN G, QN CSF 1.3 mg/dL (0.0-6.7); LGI1 Antibody, Cell-based IFA Negative (Negative); Listeria monocytogenes Not Detected (Not Detected); N meningitidis (encapsulated) Not Detected (Not Detected); PCA Type-1 (Anti-Yo) Ab Negative (Negative); Purkinje Cell Cyto Ab Type 2 Negative (Negative); Purkinje Cell Cyto Ab Type Tr Negative (Negative); Streptococcus agalactiae Not Detected (Not Detected); Streptococcus pneumoniae Not Detected (Not Detected); Varicella zoster virus Not Detected (Not Detected)
[2024-06-27 13:14] LABS: VDRL, CSF Non Reactive (Non Rea:<1:1)
[2024-06-30 15:17] LABS: CRYPTOCOCCUS AG TITER, CSF Not Indicated (.); CRYPTOCOCCUS ANTIGEN, CSF Negative (Negative)
== END 2024-06-25 17:15 | disposition home or self-care (01) | DRG 463 ==
LOC: ER 14:58 → ED HOLD 06-23 01:49 → OBSVTOIN 06-23 01:49 → ORTHO 4S 06-23 14:30
PROVIDERS: ADMIT Student in an Organized Health Care Education/Training Program; ATTEND Family Medicine
PROC: B32R1ZZ Computerized Tomography (CT Scan) of Intracranial Arteries using Low Osmolar Contrast (ICD-10-PCS; 2024-06-22)
PROC: 4A00X4Z Measurement of Central Nervous Electrical Activity, External Approach (ICD-10-PCS; principal; 2024-06-23)
PROC: BW211ZZ Computerized Tomography (CT Scan) of Abdomen and Pelvis using Low Osmolar Contrast (ICD-10-PCS; 2024-06-23)
DX: N39.0 Urinary tract infection, site not specified (principal); G93.40 Encephalopathy, unspecified; R45.851 Suicidal ideations; G89.29 Other chronic pain; M54.50 Low back pain, unspecified; K21.9 Gastro-esophageal reflux disease without esophagitis; F32.A Depression, unspecified; D75.839 Thrombocytosis, unspecified; D72.829 Elevated white blood cell count, unspecified; M48.9 Spondylopathy, unspecified; M25.552 Pain in left hip; M25.551 Pain in right hip; Z88.8 Allergy status to other drugs, medicaments and biological substances; Z20.822 Contact with and (suspected) exposure to COVID-19
CPT/HCPCS: 36415; 70450; 70496; 70553; 71045; 74177; 80048; 80053; 80076; 80305; 80320; 80329; 81001; 81025; 82040; 82042; 82140; 82164; 82784; 82945; 82948; 83605; 83735; 83880; 84100; 84145; 84157; 84443; 84484; 85025; 85651; 86140; 86255; 86592; 87015; 87040; 87070; 87081; 87088; 87103; 87210; 87483; 87502; 87503; 87811; 87899; 89051; 95816; 96365; 97116; 97161; 97530; 99285; A4353; A9575; G0378; J1170; J1644; J1956; J2405; J2919; J3490; J7030; J7120; Q0164; Q9967